=== PATIENT | female | born 1995 ===

== ENCOUNTER 2017-07-27 14:38 | Emergency (ER) | payer MEDICAID, OTHER ==
[2017-07-27 14:39] VITALS: BMI 23.0
[2017-07-27 14:44] VITALS: BP 124/79; PULSE 86; RESP 18; TEMP 98.7; O2SAT 98
--- NOTE | 2017-07-27 15:46 | ED PDOC ---
HPI: CCC, URI, Sore Throat Time Seen by Provider: 07/27/17 14:56 Chief Complaint (Nursing): Cough, Cold, Congestion Chief Complaint (Provider): cold symptoms History Per: Patient History/Exam Limitations: no limitations Additional Complaint(s): Rianna is a 22 year old female who presents to the emergency department with sore throat and fever (measured at home yesterday as 101) associated with nasal and sinus congestion. Patient states when coughing, she experiences pain to forehead, back and chest. Patient reports when swallowing, she experiences popping in left ear. She denies any recent travel or known sick contacts. PMD: Pavel Cortez Past Medical History Reviewed: Historical Data, Nursing Documentation, Vital Signs Vital Signs: Last Vital Signs Temp 98.7 F 07/27/17 14:42 Pulse 86 07/27/17 14:42 Resp 18 07/27/17 14:42 BP 124/79 07/27/17 14:42 Pulse Ox 98 07/27/17 17:32 - Medical History PMH: Anemia - Surgical History Surgical History: No Surg Hx - Family History Family History: States: No Known Family Hx - Living Arrangements Living Arrangements: With Family - Social History Current smoker - smoking cessation education provided: No Alcohol: None Drugs: Denies - Home Medications Home Medications: Ambulatory Orders Medication Instructions Recorded Azithromycin [Zithromax] 250 mg PO DAILY #6 tab 07/27/17 Benzonatate 200 mg PO TID PRN #20 capsule 07/27/17 Fluticasone Nasal [Flonase] 1 spray NS DAILY #1 bottle 07/27/17 - Allergies Allergies/Adverse Reactions: Allergies Allergy/AdvReac Type Severity Reaction Status Date / Time No Known Allergies Allergy Verified 07/16/14 08:31 Review of Systems ROS Statement: Except As Marked, All Systems Reviewed And Found Negative Constitutional: Positive for: Fever (yesterday at home) ENT: Positive for: Nose Congestion, Throat Pain, Other (When swallowing, experiences "popping" in her left ear) Respiratory: Positive for: Cough Gastrointestinal: Negative for: Nausea, Vomiting Neurological: Positive for: Headache. Negative for: Dizziness Physical Exam - Reviewed Nursing Documentation Reviewed: Yes Vital Signs Reviewed: Yes - Physical Exam Appears: Positive for: Well, Non-toxic Skin: Positive for: Normal Color. Negative for: Rash Eye Exam: Positive for: Normal appearance ENT: Positive for: TM Is/Are (normal bilaterally), Nasal Congestion, Pharyngeal Erythema, Tonsillar Swelling Neck: Positive for: Normal Cardiovascular/Chest: Positive for: Regular Rate, Rhythm Respiratory: Positive for: Normal Breath Sounds. Negative for: Rhonchi, Wheezing, Respiratory Distress Neurologic/Psych: Positive for: Alert, Oriented (x 3) - Laboratory Results Urine POC: Negative - ECG O2 Sat by Pulse Oximetry: 98 (RA) Pulse Ox Interpretation: Normal - Other Rad CXR X-Ray: Interpreted by Me, Viewed By Me X-Ray Interpretation: no acute finding Medical Decision Making Medical Decision Making: Time: 15:37 Impression: 22 year old with URI symptoms Plan: - Chest X-Ray - Throat Culture - Influenza A B - Rapid Strep Group A Antigen Flu and strep are negative Patient is aware of all diagnostic testing results. All questions answered. Rx given for flonase, zithromax and tessalon perles. Advised NSAID's for fever or pain as needed, fluids, rest and follow up with PMD in 2-3 days. Scribe Attestation: Documented by Dinesh Chaparro, acting as a scribe for Luciana Mayen PA-C Provider Scribe Attestation: All medical record entries made by the Scribe were at my direction and personally dictated by me. I have reviewed the chart and agree that the record accurately reflects my personal performance of the history, physical exam, medical decision making, and the department course for this patient. I have also personally directed, reviewed, and agree with the discharge instructions and disposition. Disposition - Clinical Impression Clinical Impression: Upper respiratory infection - Patient ED Disposition Is Patient to be Admitted: No Counseled Patient/Family Regarding: Studies Performed, Diagnosis, Need For Followup, Rx Given - Disposition Referrals: Pavel Cortez MD [Medical Doctor] - Disposition: Routine/Home Disposition Time: 18:05 Condition: STABLE Additional Instructions: Take rx meds as directed. Over the counter tylenol or advil for pain or fever as needed. Follow up with primary care doctor in 2-3 days. Prescriptions: Azithromycin [Zithromax] 250 mg PO DAILY #6 tab Benzonatate 200 mg PO TID PRN #20 capsule PRN Reason: Cough Fluticasone Nasal [Flonase] 1 spray NS DAILY #1 bottle Instructions: Upper Respiratory Infection (ED) Forms: [facility] ([place]), [facility] ED School/Work Excuse
--- NOTE | 2017-07-27 18:25 | RAD ---
HISTORY: cough COMPARISON: 10/28/2008 TECHNIQUE: Chest PA and lateral FINDINGS: LUNGS: No active pulmonary disease. PLEURA: No significant pleural effusion identified. No pneumothorax apparent. CARDIOVASCULAR: Normal. OSSEOUS STRUCTURES: No significant abnormalities. VISUALIZED UPPER ABDOMEN: Normal. OTHER FINDINGS: None. IMPRESSION: No active disease. No significant interval change compared to the prior examination(s). Concordant results with the preliminary interpretation rendered by the emergency department physician procedure.
== END 2017-07-27 23:49 | disposition home or self-care (01) ==
LOC: H.ER 14:38
DX: J06.9 Acute upper respiratory infection, unspecified (principal)

== ENCOUNTER 2017-08-12 15:23 | Emergency (ER) | payer OTHER ==
[2017-08-12 15:23] VITALS: BMI 23.0
[2017-08-12 15:33] VITALS: BP 134/69; PULSE 71; RESP 16; TEMP 98.1; O2SAT 100
--- NOTE | 2017-08-12 16:12 | ED PDOC ---
HPI: General Adult Time Seen by Provider: 08/12/17 15:52 Chief Complaint (Nursing): Breast Problem History Per: Patient Onset/Duration Of Symptoms: Days (3) Current Symptoms Are (Timing): Still Present Severity: Mild Additional Complaint(s): Pain and swelling at surgical sit left breast x 3 days. No fever or drainage. Had cyst removed left breast 2 years ago. Past Medical History Vital Signs: Last Vital Signs Temp 98.1 F 08/12/17 15:30 Pulse 71 08/12/17 15:30 Resp 16 08/12/17 15:30 BP 134/69 08/12/17 15:30 Pulse Ox 100 08/12/17 16:14 - Medical History PMH: Anemia Denies: Chronic Kidney Disease - Surgical History Surgical History: Other surgeries: Breast surgery - Family History Family History: States: Unknown Family Hx - Home Medications Home Medications: Ambulatory Orders Medication Instructions Recorded Azithromycin [Zithromax] 250 mg PO DAILY #6 tab 07/27/17 Benzonatate 200 mg PO TID PRN #20 capsule 07/27/17 Fluticasone Nasal [Flonase] 1 spray NS DAILY #1 bottle 07/27/17 Naproxen [Naprosyn] 500 mg PO Q12H #20 tab 08/12/17 Sulfamethoxazole/Trimethoprim 1 tab PO BID #20 tab 08/12/17 [Bactrim DS 800 mg-160 mg] - Allergies Allergies/Adverse Reactions: Allergies Allergy/AdvReac Type Severity Reaction Status Date / Time No Known Allergies Allergy Verified 07/16/14 08:31 Review of Systems Constitutional: Negative for: Fever Genitourinary Female: Positive for: Other (Breast pain and swelling) Physical Exam - Physical Exam Appears: Positive for: Non-toxic, No Acute Distress Skin: Positive for: Normal Color, Warm, DRY Cardiovascular/Chest: Positive for: Other (Left breast inflat areola with swelling and tenderness to surgical scar. No masses or lymphadenopathy.) - ECG O2 Sat by Pulse Oximetry: 100 Disposition - Clinical Impression Clinical Impression: Cyst of breast, Seroma after procedure - Patient ED Disposition Is Patient to be Admitted: No Counseled Patient/Family Regarding: Studies Performed, Diagnosis, Need For Followup, Rx Given - Disposition Referrals: Jesse Andrade MD [Staff Provider] - Disposition: Routine/Home Disposition Time: 17:35 Condition: FAIR Prescriptions: Naproxen [Naprosyn] 500 mg PO Q12H #20 tab Sulfamethoxazole/Trimethoprim [Bactrim DS 800 mg-160 mg] 1 tab PO BID #20 tab Instructions: Cyst (ED) Forms: [facility] (Dominican)
--- NOTE | 2017-08-13 09:00 | US ---
HISTORY: Relevant surgical history: Cyst aspiration 2 years ago TECHNIQUE: Standard protocol for this study/examination. FINDINGS: LEFT BREAST: Avascular subcutaneous solid mass labeled left breast area of concern/ pain 4-6 o'clock retroareolar region. This measures 5 mm by 2.8 cm. The findings are nonspecific may be related to prior intervention. There is no drainable collection. IMPRESSION: Solid mass, tubular structure corresponding to the area of interest left breasts. Follow-up to resolution/ surgical consultation as appropriate. BIRADS: BIRADS 3 Probably Benign Recommendation: Follow-up to resolution. This may represent an area of scar. Mammographic correlation may be beneficial. Concordant results (preliminary interpretation) provided by [facility]. Procedure Completed: 16:12 Preliminary ([facility]) Report: Dictated and Authenticated: 17:15 Final Interpretation: 08:58 August 13, 2017.
== END 2017-08-12 17:50 | disposition home or self-care (01) ==
LOC: H.ER 15:23
DX: N60.02 Solitary cyst of left breast (principal)

== ENCOUNTER 2018-04-06 13:42 | Emergency (ER) | payer OTHER ==
[2018-04-06 13:42] VITALS: BMI 23.0
[2018-04-06 13:53] VITALS: O2SAT 100
--- NOTE | 2018-04-06 14:36 | ED PDOC ---
HPI: General Adult Time Seen by Provider: 04/06/18 14:35 Chief Complaint (Nursing): ENT Problem Chief Complaint (Provider): sore throat, vaginal discharge History Per: Patient Additional Complaint(s): 23-year-old female presents to emergency room with sore throat and tonsil swelling 1 week. Patient also has secondary complaint of yellowish vaginal discharge that started 3 days ago. Patient denies any fever or chills. Patient states she is concerned about possible STD because of recent unprotected intercourse this past weekend. Patient denies engaging in any oral sex. She is tolerating liquids and solids. She denies any nausea or vomiting, no constipation or diarrhea. Patient denies dysuria. PMD: none Past Medical History Vital Signs: Last Vital Signs Temp 99.2 F 04/06/18 13:49 Pulse 80 04/06/18 13:49 Resp 14 04/06/18 13:49 BP 129/84 04/06/18 13:49 Pulse Ox 100 04/06/18 16:45 - Medical History PMH: Anemia Denies: Chronic Kidney Disease - Surgical History Surgical History: - Family History Family History: States: Unknown Family Hx - Home Medications Home Medications: Ambulatory Orders Medication Instructions Recorded Azithromycin [Zithromax] 250 mg PO DAILY #6 tab 07/27/17 Benzonatate 200 mg PO TID PRN #20 capsule 07/27/17 Fluticasone Nasal [Flonase] 1 spray NS DAILY #1 bottle 07/27/17 Naproxen [Naprosyn] 500 mg PO Q12H #20 tab 08/12/17 Sulfamethoxazole/Trimethoprim 1 tab PO BID #20 tab 08/12/17 [Bactrim DS 800 mg-160 mg] Cephalexin [Keflex] 500 mg PO TID #21 capsule 04/06/18 - Allergies Allergies/Adverse Reactions: Allergies Allergy/AdvReac Type Severity Reaction Status Date / Time No Known Allergies Allergy Verified 04/06/18 13:49 Physical Exam - Reviewed Nursing Documentation Reviewed: Yes Vital Signs Reviewed: Yes - Physical Exam Appears: Positive for: Well, Non-toxic, No Acute Distress Skin: Positive for: Normal Color. Negative for: Rash Eye Exam: Positive for: Normal appearance Cardiovascular/Chest: Positive for: Regular Rate, Rhythm Respiratory: Positive for: Normal Breath Sounds Gastrointestinal/Abdominal: Positive for: Soft. Negative for: Tenderness, Distended, Guarding, Rebound Pelvic Exam: Positive for: Other (Copious amount of purulent yellow discharge noted from closed cervical os, no CMT, no adnexal tenderness bilaterally) Back: Negative for: L CVA Tenderness, R CVA Tenderness Extremity: Positive for: Normal ROM Neurologic/Psych: Positive for: Alert, Oriented - Laboratory Results Result Diagrams: 04/06/18 15:39 04/06/18 15:39 Urine POC: Negative Urine dip results: Positive for: Leukocyte Esterase (Moderate). Negative for: Nitrate, Ketones, Glucose, Bilirubin - ECG O2 Sat by Pulse Oximetry: 100 Pulse Ox Interpretation: Normal Medical Decision Making Medical Decision Makin-year-old female with sore throat and vaginal discharge. Plan: CBC CMP Monospot Rapid strep and throat culture Genital culture UA and urine culture Urine CHL/GC culture IV fluids IV Decadron Patient is aware of all diagnostic testing results, all questions answered. Patient was treated empirically for gonorrhea and chlamydia with 250 mg IM Rocephin and 1 g of oral Zithromax. Cultures were sent. Patient given prescription for Keflex and was referred to women's clinic for follow-up. Disposition - Clinical Impression Clinical Impression: Tonsillitis, STD exposure, Urinary tract infection - Patient ED Disposition Is Patient to be Admitted: No Counseled Patient/Family Regarding: Studies Performed, Diagnosis, Need For Followup, Rx Given - Disposition Referrals: [facility] [Outside] Disposition: Routine/Home Disposition Time: 16:55 Condition: STABLE Additional Instructions: Take prescription meds as directed. [id number] Advil or Tylenol for pain as needed. Follow-up with women's clinic in 2-3 days. Prescriptions: Cephalexin [Keflex] 500 mg PO TID #21 capsule Instructions: Sore Throat, Adult (DC), STD Prevention, Urinary Tract Infections in Adults Forms: [employer] ([place]) Results - Lab Results Lab Results: 04/06/18 04/06/18 04/06/18 15:39 15:39 15:39 WBC 6.0 RBC 4.01 Hgb 10.8 L Hct 32.9 L MCV 82.0 MCH 26.9 L MCHC 32.8 L RDW 16.5 H Plt Count 236 MPV 9.8 Neut % (Auto) 69.0 Lymph % (Auto) 19.4 L [place] % (Auto) 10.0 Eos % (Auto) 0.6 Baso % (Auto) 1.0 Neut # (Auto) 4.1 Lymph # (Auto) 1.2 [place] # (Auto) 0.6 Eos # (Auto) 0.0 Baso # (Auto) 0.1 Sodium 141 Potassium 5.2 H Chloride 108 H Carbon Dioxide 23 Anion Gap 15 BUN 10 Creatinine 0.5 L Est GFR ( Amer) > 60 Est GFR (Non-Af Amer) > 60 Random Glucose 89 Calcium 9.2 Total Bilirubin 1.3 AST 51 H ALT 12 Alkaline Phosphatase 45 Total Protein 8.2 Albumin 4.6 Globulin 3.7 Albumin/Globulin Ratio 1.3 Infectious [place] Assay Negative Grp A Beta Strep Ag 04/06/18 14:30 WBC RBC Hgb Hct MCV MCH MCHC RDW Plt Count MPV Neut % (Auto) Lymph % (Auto) [place] % (Auto) Eos % (Auto) Baso % (Auto) Neut # (Auto) Lymph # (Auto) [place] # (Auto) Eos # (Auto) Baso # (Auto) Sodium Potassium Chloride Carbon Dioxide Anion Gap BUN Creatinine Est GFR ( Amer) Est GFR (Non-Af Amer) Random Glucose Calcium Total Bilirubin AST ALT Alkaline Phosphatase Total Protein Albumin Globulin Albumin/Globulin Ratio Infectious [place] Assay Grp A Beta Strep Ag Negative
[2018-04-06] MEDS ORDERED: Dexamethasone 4 mg/1 ml IV STA (14:37)
[2018-04-06] MEDS ORDERED: cefTRIAXone (Rocephin) 250 mg Inj IM STA (14:37)
[2018-04-06] MEDS ORDERED: Sodium Chloride 0.9% 1,000 ML IV STA (14:37)
[2018-04-06] MEDS ORDERED: cefTRIAXone (Rocephin) 250 mg Inj ONE (14:59)
[2018-04-06 15:46] LABS: BASO # 0.1 K/uL (0.0-0.2); EOS % 0.6 % (0.0-4.0); HEMOGLOBIN 10.8 g/dL (12.0-16.0); LYMPH # 1.2 K/uL (1.0-4.3); LYMPH % 19.4 % (20.0-40.0); MEAN CORPUSCULAR HEMOGLOBIN 26.9 pg (27.0-31.0); MEAN CORPUSCULAR HGB CONC 32.8 g/dL (33.0-37.0); MEAN PLATELET VOLUME 9.8 fl (7.2-11.7); MONO # 0.6 K/uL (0.0-0.8); NEUT # 4.1 K/uL (1.8-7.0); NRBC % 0.2 % (0.0-0.0); RBC 4.01 Mil/uL (3.80-5.20); RED CELL DISTRIBUTION WIDTH 16.5 % (11.5-14.5)
[2018-04-06 15:55] LABS: CALCIUM 9.2 mg/dL (8.4-10.2); GFR NON-AFRICAN AMERICAN > 60
[2018-04-06 16:07] LABS: ALB/GLOB RATIO 1.3 (1.0-2.1); ALBUMIN 4.6 g/dL (3.5-5.0); ALT/SGPT 12 U/L (9-52); AST/SGOT 51 U/L (14-36); BLOOD UREA NITROGEN 10 mg/dl (7-17)
[2018-04-06 17:38] VITALS: BP 124/89; PULSE 84; RESP 16; TEMP 98.5
== END 2018-04-06 17:10 | disposition home or self-care (01) ==
LOC: H.ER 13:42
DX: J03.90 Acute tonsillitis, unspecified (principal); N39.0 Urinary tract infection, site not specified; N89.8 Other specified noninflammatory disorders of vagina; Z20.2 Contact with and (suspected) exposure to infections with a predominantly sexual mode of transmission
CPT/HCPCS: 80053; 81025; 85025; 86308; 87070; 87086; 87430; 87491; 87591; 96360; 96372; 99284; J0696; J1100; J7030